=== PATIENT | female | born 2000 | race Two or more races ===

== ENCOUNTER 2023-06-26 10:38 | Emergency (ER) | payer OTHER ==
[~2023-06-26] VITALS: Ht 160 cm; Wt 54.4 kg
[~2023-06-26 10:38] MED LIST: FLUCONAZOLE150 MG PO; METRONIDAZOLE500 MG PO
[2023-06-26] MEDS ORDERED: FAMOTIDINE/PF 20 MG in 0.9 % SODIUM CHLORIDE 8 ML IV PUSH STA (12:57)
[2023-06-26] MEDS ORDERED: DIPHENOXYLATE HCL/ATROPINE 1 UDTAB TABLET PO ONE (13:00)
[2023-06-26] MEDS ORDERED: METRONIDAZOLE/SODIUM CHLORIDE 500 MG/100 ML PIGGYBACK IV ONE (13:00)
[2023-06-26] MEDS ORDERED: 0.9 % SODIUM CHLORIDE 1,000 ML IV SCH (13:00)
[2023-06-26 13:30] LABS: HEMATOCRIT 38.8 % (36.0-45.00); HEMOGLOBIN 13.4 g/dL (12.0-15.00); MEAN CELL VOLUME 91.2 fL (80.00-100.00); MEAN CORPUSCULAR HEMOGLOBIN 31.6 pg (27.00-32.0); MEAN CORPUSCULAR HGB CONC 34.6 g/dl (32.0-36.0); PLATELET COUNT 300 K/uL (150-450); RED BLOOD COUNT 4.25 M/uL (4.00-6.00); RED CELL DISTRIBUTION WIDTH 13.1 % (11.5-14.5)
[2023-06-26 13:56] LABS: ALBUMIN 4.2 gm/dL (3.4-5.0); BILIRUBIN TOTAL 0.41 mg/dL (0.3-1.2); CALCIUM 9.6 mg/dL (8.5-10.1); CREATININE SERUM 0.74 mg/dL (0.55-1.02); GFR 98.14; GLOBULINA 3.6 G/DL (2.4-3.5); POTASSIUM 4.16 mEq/L (3.5-5.1); TOTAL PROTEIN 7.8 gm/dL (6.4-8.2)
[2023-06-26] MEDS ORDERED: PEPCID AC20 MG PO (15:07)
[2023-06-26] MEDS ORDERED: CIPRO500 MG PO (15:07)
== END 2023-06-26 15:15 | disposition home or self-care (01) ==
LOC: ER 10:38
PROVIDERS: General Practice
DX: T50.Z95A Adverse effect of other vaccines and biological substances, initial encounter (principal); Y92.89 Other specified places as the place of occurrence of the external cause